=== PATIENT | male | born 1965 | race Caucasian/White ===

== ENCOUNTER → 2017-03-18 | Outpatient (CLI) | payer BC ==
[~2017-03-18] MED LIST: HYDROCODONE-AP1 EAC6 PO; LEVAQUIN 500 M500 M2 PO; NORCO 5-325 TA1 EACH PO
== END ==
LOC: ULTRA 09:06
DX: I86.1 Scrotal varices (principal); N50.3 Cyst of epididymis

== ENCOUNTER 2017-03-21 17:58 | Emergency (ER) | payer BC, OTHER ==
[~2017-03-21] VITALS: Ht 188 cm; Wt 108.9 kg
[~2017-03-21 17:58] MED LIST changes: -HYDROCODONE-AP1 EAC6 PO; -LEVAQUIN 500 M500 M2 PO
[2017-03-21 18:53] LABS: URINE BILIRUBIN NEGATIVE (Negative); URINE BLOOD NEGATIVE (Negative); URINE COLOR YELLOW; URINE GLUCOSE-RANDOM* NEGATIVE (Negative); URINE KETONES NEGATIVE (Negative); URINE LEUKOCYTES-REFLEX NEGATIVE (Negative); URINE PROTEIN (DIPSTICK) NEGATIVE (Negative); URINE SPECIFIC GRAVITY 1.015 (1.003-1.035); URINE UROBILINOGEN 0.2 E.U./dl (0.2-1.0)
[2017-03-21 20:02] LABS: HEMATOCRIT 42.6 % (42.0-52.0); HEMOGLOBIN 14.6 gm/dL (14.0-18.0); MCH 32.6 pg (26.0-34.0); MCHC 34.1 g/dL (28.0-37.0); MCV 95.4 fL (80.0-100.0); PLATELET COUNT 121 thou/uL (150-400); RBC 4.47 mil/uL (4.50-6.00); RDW 12.7 % (10.5-14.5); WBC 9.1 thou/uL (4.0-11.0)
[2017-03-21 20:04] LABS: MANUAL DIFF YES
[2017-03-21 20:09] LABS: CALCIUM 8.3 mg/dL (8.5-10.1); CREATININE 1.2 mg/dL (0.7-1.3); POTASSIUM 4.1 mmol/L (3.5-5.1)
[2017-03-21 20:28] LABS: ABSOLUTE NEUTROPHILS 6.5 thou/uL (1.4-8.2); TOTAL CELL COUNT 100
[2017-03-21] MEDS ORDERED: LEVAQUIN 500 M500 M2 PO (21:10)
[2017-03-21] MEDS ORDERED: HYDROCODONE-AP1 EAC6 PO (21:10)
[2017-03-21 21:17] VITALS: BP 148/92
== END 2017-03-21 21:18 | disposition home or self-care (01) ==
LOC: ER 17:58
PROVIDERS: Physician Assistant
DX: N45.1 Epididymitis (principal); F10.99 Alcohol use, unspecified with unspecified alcohol-induced disorder; Z98.890 Other specified postprocedural states

== ENCOUNTER 2017-05-24 08:26 | Inpatient (IN) | payer BC, OTHER ==
[~2017-05-24] VITALS: Ht 188 cm; Wt 108.9 kg
[2017-05-24] VITALS (11 sets, daily range): BP systolic 116–139; BP diastolic 69–88
--- NOTE | ~2017-05-24 | HC ---
[facility] [place] [address] CONSULTATION Name: ALFA THOMAS Room #: 432-P [facility] IN M.R.#: [id number] Admission: 05/24/17 Attend Phys: Alex Saul MD Discharge: 05/25/17 Date of : 67 Report #: [id number] THIS REPORT FOR: //name// CC: Alex Maipreston DATE OF SERVICE: 05/24/2017 HISTORY OF PRESENT ILLNESS: I have been asked to evaluate this 52-year-old male who presented to Emergency Department with a chief complaint of abdominal pain. The abdominal pain began on Wednesday evening and has progressively worsened. On Wednesday, the patient continued to be somewhat anorexic. He did not have vomiting. He had no fever or temperature elevation. The pain worsened on Wednesday and was radiating more to the right flank region. He sought evaluation in the Emergency Department and was found to have a CT scan consistent with early appendicitis. He denies nausea and vomiting. He has had no change in his gastrointestinal function. He is somewhat anorexic. PAST MEDICAL HISTORY: Medical illnesses, GERD and epididymitis, resolved. PAST SURGICAL HISTORY: None. MEDICATIONS: At the time of admission, Xanax 0.25 mg daily p.r.n. anxiety. 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 Does not smoke cigarettes. Alcohol - occasional social ingestion. REVIEW OF SYSTEMS: A 10-point review of systems essentially noncontributory. PHYSICAL EXAMINATION: GENERAL: Reveals a well-developed, well-nourished male, alert, cooperative. HEENT: Pupils equal, round, react to light. CARDIOVASCULAR: Regular rate and rhythm. LUNGS: Clear to bases bilaterally. ABDOMEN: Tenderness to palpation with guarding and rebound in right lower quadrant. Positive Rovsing. Bowel sounds are present. No distention. NEUROLOGIC: He is oriented x 3. Bilateral motor symmetry. is at the bedside. LABORATORY DATA: CT scan is consistent with early appendicitis, no abscess or perforation. CBC demonstrates white blood cell count is 8600 with some slight shift, 72% segs, but no profound leukocytosis. DIAGNOSTIC IMPRESSION: Acute appendicitis. PLAN: IV antibiotics, n.p.o., laparoscopic appendectomy on the day of [address] [address] CONSULTATION Name: ALFA THOMAS Room #: 432-P [facility] IN [facility].#: [id number] Admission: 05/24/17 Attend Phys: Alex Saul MD Discharge: 05/25/17 Date of : 67 Report #: [id number] admission. Thank you for allowing us to participate in his care. By: 1525 0114 Tito Mcintosh MD, FACS /nt
--- NOTE | ~2017-05-24 | O ---
[facility] [place] [address] OPERATIVE REPORT Name: ALFA THOMAS Room #: 432-P [facility] IN M.R.#: [id number] Admission: 05/24/17 Attend Phys: Alex Saul MD Discharge: 05/25/17 Date of : 67 Report #: [id number] THIS REPORT FOR: //name// CC: Alex [facility] DATE OF SERVICE: 05/24/2017 PREOPERATIVE DIAGNOSIS: Acute appendicitis. POSTOPERATIVE DIAGNOSIS: Acute appendicitis, nonperforated. PROCEDURE: Laparoscopic appendectomy. SURGEON: Tito Mcintosh MD PHOTOGRAPHER'S MODEL: JAZZY Durán. INDICATIONS: A 51-year-old male with 48-72 hours of abdominal pain, localized to right lower quadrant. CT was positive for acute appendicitis without evidence of abscess or perforation. OPERATIVE PROCEDURE: The patient was brought to the operating room suite and had satisfactory induction of general endotracheal anesthesia. Preoperatively, informed consent was obtained from the patient and his . After satisfactory induction of general anesthesia, the patient's entire abdomen was prepped and draped in usual sterile procedure with DuraPrep. The patient was securely taped and strapped to the operating room table. Sterile draping was completed. An appropriate time-out was then performed. 0.5% plain Naropin was utilized at all 3 trocar sites. Initially, a 5-mm port was placed under direct vision above the patient's previous umbilical hernia repair. Pneumoperitoneum was established. The left lower quadrant 12-mm trocar port was placed under direct vision. The balloon was inflated. A lower midline 5-mm trocar port was then placed under direct vision. The appendix was in a lateral inferior cecal position, it was grasped and retracted cephalad and anteriorly. A window was made in the mesoappendix. The base of the appendix was crossclamped, ligated and divided with the LEX laparoscopic device. The mesoappendix was controlled and the appendiceal artery controlled with the ByteShield energy device. The transected appendix was placed into a bag and removed from the peritoneal cavity. Irrigation with 1 liter of saline was then performed. Evacuation of all irrigating contents was accomplished. The base of the appendix was secured and evaluated. The mesoappendix was dry and hemostatic. After evacuation of all irrigating contents, no other intra-abdominal pathology was noted. An 0 PDS suture was placed under direct vision at the left lower quadrant trocar site for approximation of the muscle fascia. The trocars were then removed under direct vision. The pneumoperitoneum was deflated and evacuated. The 0 PDS suture was [address] [address] OPERATIVE REPORT Name: ALFA THOMAS Room #: 432-P [facility] IN M.R.#: [id number] Admission: 05/24/17 Attend Phys: Alex Saul MD Discharge: 05/25/17 Date of : 67 Report #: [id number] Skin margins were then approximated with subcuticular 4-0 Monocryl. Estimated blood loss was less than 25 mL. The patient tolerated the procedure well and returned to recovery room in stable and satisfactory condition. By: 1529 1604 Tiot Mcintosh MD, FACS /nt
--- NOTE | ~2017-05-24 | EKG ---
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: [facility] : 1965 Requested By: Shelli Dodge Order Number: [id number] MD: Henyr Suarez Measurements Intervals [place] Rate: 71 P: -13 AL: 168 QRS: -20 QRSD: 112 T: 34 QT: 390 QTc: 424 Interpretive Statements Sinus rhythm Borderline intraventricular conduction delay Abnormal R-wave progression, early transition No previous ECG available for comparison Electronically Signed On 05-24-2017 16:34:46 BLIND ESCORT by Henry Suarez [email or web address] <ELECTRONICALLY SIGNED> By: Henry Suarez MD 05/24/17 1634 1040 1040 Henry Suarez MD /SONIA
--- NOTE | ~2017-05-24 | S ---
[facility] [place] [address] SURGICAL PATH RPT PROCEDURE Name: ALFA BRIAN Room #: 432-P ADM IN M.R.#: [id number] Admission: 05/24/17 Date of : 67 Discharge: Report #: [id number] Path Case #: [id number] PATHOLOGY REPORT COLLECTION DATE: 05/24/2017 RECEIVED DATE: 05/24/2017 SUBMITTING PHYS: Dr. Tito Mcintosh OTHER PHYS: Dr. Alex Johnson SPECIMEN(S) RECEIVED: A.Appendix * * * * * * * * * * * * FINAL DIAGNOSIS: Appendix, appendectomy: - Marked acute appendicitis. PATHOLOGIST: Christy Cash M.D. REPORT ELECTRONICALLY SIGNED BY: Christy Cash M.D. DATE/TIME: 05/25/2017 17:00 * * * * * * * * * * * * GROSS PATHOLOGY: Received in formalin labeled "Alfa Brian and appendix," is an appendix measuring 7.0 cm in length and up to 1.5 cm in diameter with moderate amount of attached mesoappendix. The proximal resection margin is closed by an the nearest staple line 1.5 cm in length and up to 0.3 cm in width, inked black. The distal serosal surface is covered by alicea-white exudate remaining gaitan-pink. Sectioning reveals lumen filled with purulent material with no discrete fecalith or masses and an edematous wall that measure up to 0.6 cm. Machine Loader sections are submitted in cassette A1-A2. (SWS; 05/24/2017) CLINICAL HISTORY: Acute appendicitis, nonperforated INITIAL CPT CODE(S): A; 85101 Professional services performed by [facility] at [facility] [address] , [place] [address] Technical services performed by [facility] at [address] [place] [address] [address] [place] [address] SURGICAL PATH RPT PROCEDURE Name: ALFA BRIAN Room #: 432-[facility] IN .R.#: [id number] Admission: 05/24/17 Date of : 67 Discharge: Report #: [id number] Path Case #: [id number] [place] [address]. [facility] [address] [place] [address] PHONE: [phone] DIRECTOR: Sunil Miller M.D. * * * END OF REPORT * * *
[~2017-05-24 08:26] MED LIST changes: +HYDROCODONE-AP1 EAC6 PO; +LEVAQUIN 500 M500 M2 PO
[2017-05-24] MEDS ORDERED: XANAX 0.25 MG0.25 MG PO (08:29)
[2017-05-24 09:14] LABS: ABSOLUTE NEUTROPHILS 6.2 thou/uL (1.4-8.2); BASOPHILS 0.7 % (0.0-2.0); EOSINOPHILS 1.7 % (0.0-3.0); HEMATOCRIT 46.5 % (42.0-52.0); HEMOGLOBIN 15.7 gm/dL (14.0-18.0); LYMPHOCYTES 14.9 % (24.0-44.0); MCH 32.1 pg (26.0-34.0); MCHC 33.7 g/dL (28.0-37.0); MCV 95.4 fL (80.0-100.0); MONOCYTES 10.4 % (1.0-8.0); PLATELET COUNT 131 thou/uL (150-400); POLYS 72.3 % (36.0-66.0); RBC 4.87 mil/uL (4.50-6.00); RDW 12.7 % (10.5-14.5); WBC 8.6 thou/uL (4.0-11.0)
[2017-05-24 09:17] LABS: MANUAL DIFF NO
[2017-05-24 09:22] LABS: CALCIUM 9.1 mg/dL (8.5-10.1); CREATININE 1.1 mg/dL (0.7-1.3); POTASSIUM 4.4 mmol/L (3.5-5.1)
[2017-05-24 09:27] LABS: ALBUMIN 3.8 g/dL (3.4-5.0); TOTAL BILIRUBIN 0.6 mg/dL (<0.1-1.0); TOTAL PROTEIN 7.2 g/dL (6.4-8.2)
[2017-05-24 09:31] LABS: URINE BILIRUBIN NEGATIVE (Negative); URINE BLOOD NEGATIVE (Negative); URINE COLOR YELLOW; URINE GLUCOSE-RANDOM* NEGATIVE (Negative); URINE KETONES NEGATIVE (Negative); URINE NITRITE NEGATIVE (Negative); URINE PROTEIN (DIPSTICK) NEGATIVE (Negative); URINE SPECIFIC GRAVITY 1.025 (1.005-1.035); URINE UROBILINOGEN 0.2 E.U./dl (0.2-1.0)
[2017-05-25 04:15] VITALS: BP 114/66
[2017-05-25 06:02] LABS: ABSOLUTE NEUTROPHILS 5.9 thou/uL (1.4-8.2); BASOPHILS 0.7 % (0.0-2.0); EOSINOPHILS 1.4 % (0.0-3.0); HEMATOCRIT 40.4 % (42.0-52.0); HEMOGLOBIN 13.9 gm/dL (14.0-18.0); LYMPHOCYTES 15.2 % (24.0-44.0); MCH 32.7 pg (26.0-34.0); MCHC 34.4 g/dL (28.0-37.0); MCV 94.9 fL (80.0-100.0); MONOCYTES 10.9 % (1.0-8.0); PLATELET COUNT 125 thou/uL (150-400); POLYS 71.8 % (36.0-66.0); RBC 4.25 mil/uL (4.50-6.00); RDW 12.7 % (10.5-14.5); WBC 8.3 thou/uL (4.0-11.0)
[2017-05-25 06:06] LABS: MANUAL DIFF NO
[2017-05-25 06:18] LABS: CREATININE 1.2 mg/dL (0.7-1.3); MAGNESIUM 2.1 mg/dL (1.8-2.4); POTASSIUM 4.1 mmol/L (3.5-5.1)
[2017-05-25 07:50] VITALS: BP 110/66
[2017-05-25 16:41] VITALS: BP 110/66
== END 2017-05-25 17:53 | disposition home or self-care (01) | DRG 343 ==
LOC: ER 08:26 → 4E 10:45 → EROBS 10:45 → 4E 11:36
PROVIDERS: Physician Assistant; Surgery
PROC: 0DTJ0ZZ Resection of Appendix, Open Approach (ICD-10-PCS; principal; 2017-05-24)
DX: K35.80 Unspecified acute appendicitis (principal); F41.9 Anxiety disorder, unspecified; K21.9 Gastro-esophageal reflux disease without esophagitis
CPT/HCPCS: 10183; 50010; 50101; 50249; 50411; 50555; 50740; 50944; 50962; 51489; 51975; 52265; 53307; 54022; 54118; 56524; 56525; 56526; 62110; 62900; 70005

== ENCOUNTER → 2019-01-05 | Outpatient (CLI) | payer BC, OTHER ==
[~2019-01-05] MED LIST changes: +XANAX 0.25 MG0.25 MG PO
== END ==
LOC: RAD 10:49
DX: J84.10 Pulmonary fibrosis, unspecified (principal); M54.2 Cervicalgia

== ENCOUNTER → 2019-01-31 | Outpatient (CLI) | payer BC, OTHER | LOC: RAD 12:34 | DX: J84.10 Pulmonary fibrosis, unspecified (principal) ==

== ENCOUNTER → 2019-02-07 | Outpatient (CLI) | payer BC, OTHER | LOC: MRI 06:48 | DX: M54.6 Pain in thoracic spine (principal) ==

== ENCOUNTER → 2019-02-14 | Outpatient (CLI) | payer BC, OTHER | LOC: CAT 08:00 | DX: I71.2 Thoracic aortic aneurysm, without rupture (principal); R93.89 Abnormal findings on diagnostic imaging of other specified body structures; J84.10 Pulmonary fibrosis, unspecified; I89.8 Other specified noninfective disorders of lymphatic vessels and lymph nodes ==

== ENCOUNTER → 2019-08-31 | Outpatient (CLI) | payer BC, OTHER | LOC: SJCVCIMAG 09:12 | DX: I45.10 Unspecified right bundle-branch block (principal); I71.2 Thoracic aortic aneurysm, without rupture; E78.5 Hyperlipidemia, unspecified; G47.33 Obstructive sleep apnea (adult) (pediatric); Q26.1 Persistent left superior vena cava ==

== ENCOUNTER → 2020-09-23 | Outpatient (CLI) | payer OTHER | LOC: SJCVCIMAG 08:57 | PROVIDERS: ATTEND Internal Medicine | DX: I71.2 Thoracic aortic aneurysm, without rupture (principal); I77.89 Other specified disorders of arteries and arterioles; E78.5 Hyperlipidemia, unspecified; Q26.1 Persistent left superior vena cava; G47.33 Obstructive sleep apnea (adult) (pediatric); Z87.891 Personal history of nicotine dependence ==

== ENCOUNTER → 2021-05-12 | Outpatient (CLI) | payer OTHER | LOC: SJCVCIMAG 13:52 → EDUPRED 14:37 | PROVIDERS: ATTEND Internal Medicine | DX: I71.2 Thoracic aortic aneurysm, without rupture (principal); E78.5 Hyperlipidemia, unspecified; Q26.1 Persistent left superior vena cava; G47.33 Obstructive sleep apnea (adult) (pediatric); K37 Unspecified appendicitis; N45.1 Epididymitis; R07.9 Chest pain, unspecified; Z79.899 Other long term (current) drug therapy; Z72.89 Other problems related to lifestyle; Z87.891 Personal history of nicotine dependence; Z82.49 Family history of ischemic heart disease and other diseases of the circulatory system ==